=== PATIENT | male | born 1965 | race Caucasian/White ===

== ENCOUNTER 2017-09-11 14:19 | Emergency (ER) | payer SELFPAY ==
[2017-09-11 15:03] VITALS: BP 146/96
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
--- NOTE | 2017-09-11 17:26 | RAD ---
INDICATION: Neck and left shoulder pain after a fall COMPARISON: None. TECHNIQUE: 4 views of the left shoulder were obtained. FINDINGS: Overlying the superior lateral aspect of the humerus is a 2 mm focal hyperattenuating structure in the soft tissues. The adequately corticated bones are in normal alignment. Joint spaces appear maintained. No fracture, dislocation or focal bony abnormality is seen. IMPRESSION: HYPERDENSE FOCUS IN THE SUBCUTANEOUS TISSUE OVERLYING THE SUPERIOR LATERAL HUMERAL HEAD OF UNCERTAIN CLINICAL SIGNIFICANCE. PLEASE CORRELATE TO PRIOR SURGICAL INTERVENTIONS OR SOFT TISSUE INJURY. If the patient's symptoms persist, follow-up imaging is recommended.
--- NOTE | 2017-09-11 17:28 | RAD ---
INDICATION: Neck pain after a fall COMPARISON: Similar radiograph September 07, 2003 TECHNIQUE: 5 views of the cervical spine were obtained. 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 Degenerative changes at the upper cervical spine include loss of intervertebral disc height. There is bony proliferation overlying the neural foramina bilaterally on the oblique views. The dens is intact. There is no evidence of acute fracture or dislocation. There is no prevertebral soft tissue swelling. IMPRESSION: Chronic and degenerative changes described above. If the patient's symptoms persist, follow-up imaging is recommended.
== END 2017-09-11 17:47 | disposition home or self-care (01) ==
LOC: UCCORT 14:19
DX: S16.1XXA Strain of muscle, fascia and tendon at neck level, initial encounter (principal); S43.52XA Sprain of left acromioclavicular joint, initial encounter; W00.0XXA Fall on same level due to ice and snow, initial encounter; Y93.89 Activity, other specified; Y92.412 Parkway as the place of occurrence of the external cause; G56.02 Carpal tunnel syndrome, left upper limb; F17.210 Nicotine dependence, cigarettes, uncomplicated
CPT/HCPCS: 72050; 99211; G0463